=== PATIENT | male | born 1980 | race Caucasian/White ===

== ENCOUNTER 2021-04-21 14:25 | Emergency (ER) | payer OTHER ==
[~2021-04-21] VITALS: Ht 182.9 cm; Wt 93.4 kg
[2021-04-21 15:59] LABS: URINE BILIRUBIN NEGATIVE (Negative); URINE BLOOD NEGATIVE (Negative); URINE CLARITY CLEAR; URINE COLOR YELLOW; URINE GLUCOSE-RANDOM NEGATIVE (Negative); URINE KETONES NEGATIVE (Negative); URINE LEUKOCYTES-REFLEX NEGATIVE (Negative); URINE NITRITE-REFLEX NEGATIVE (Negative); URINE PROTEIN NEGATIVE (Negative); URINE SPECIFIC GRAVITY >= 1.030 (1.005-1.030); URINE UROBILINOGEN 0.2 E.U./dl (0.2-1.0)
[2021-04-21 20:29] LABS: ABSOLUTE BASOPHILS 0.2 thou/uL (0.0-0.2); ABSOLUTE EOSINOPHILS 0.4 thou/uL (0.0-0.7); ABSOLUTE LYMPHOCYTES 3.2 thou/uL (0.8-5.3); ABSOLUTE MONOCYTES 1.2 thou/uL (0.0-1.2); ABSOLUTE NEUTROPHILS 13.1 thou/uL (1.6-8.1); BASOPHILS 0.8 %; HEMATOCRIT 49.6 % (42.0-52.0); HEMOGLOBIN 16.7 gm/dL (14.0-18.0); LYMPHOCYTES 17.8 %; MCH 30.7 pg (26.0-34.0); MCHC 33.6 g/dL (28.0-37.0); MCV 91.4 fL (80.0-100.0); MONOCYTES 6.8 %; MPV 7.7 fl. (7.2-11.1); NUCLEATED RBCS 0 /100WBC; PLATELET COUNT* 328 thou/uL (150-400); POLYS 72.6 %; RBC 5.43 mil/uL (4.50-6.00); RDW-CV 13.3 % (10.5-14.5)
[2021-04-21 20:43] LABS: CALCIUM 8.6 mg/dL (8.5-10.1); POTASSIUM 3.9 mmol/L (3.5-5.1)
[2021-04-21 20:47] LABS: ALBUMIN 4.2 g/dL (3.4-5.0); TOTAL BILIRUBIN 0.6 mg/dL (<0.1-1.0)
[2021-04-21] MEDS ORDERED: ZOFRAN ODT4 MG PO (22:10)
[2021-04-21] MEDS ORDERED: DICYCLOMINE HCL20 MG PO (22:10)
[2021-04-21 22:23] VITALS: BP 144/87
== END 2021-04-21 22:23 | disposition home or self-care (01) ==
LOC: M.ERS 14:25
PROVIDERS: Emergency Medicine Emergency Medical Services; Nurse Practitioner Family
DX: K76.0 Fatty (change of) liver, not elsewhere classified (principal); Z88.0 Allergy status to penicillin